=== PATIENT | female | born 1945 | race Caucasian/White ===

== ENCOUNTER 2017-09-09 06:55 | Outpatient (CLI) | payer MEDICARE, BC ==
--- NOTE | 2017-09-09 10:04 | CT ---
CT LUMBAR SPINE: HISTORY: Back pain. History of MRSA. FINDINGS: Noncontrast-enhanced CT images of the lumbar spine obtained. Images demonstrate pedicle hardware with fusion of the L3, L4, L5, and S1 vertebrae using pedicle scr ews. Intervertebral disk hardware is also seen at L4-5 and L5-S1. There are vacuum disk changes see n at the L1-2 intervertebral disk space. End plate sclerotic change is also present. L3, L4, L5, an d S1 pedicle screw hardware is in good position without evidence of loosening. There is marked atrop hy of the right psoas muscle. Laminectomy change is seen at the L4 and L5 posterior elements. No si gnificant degree of central spinal stenosis seen. L2 through S1 fusion with vacuum disk changes seen at the L1-2 intervertebral disk space. Some neural foraminal narrowing is also seen at this level d ue to osteophyte encroachment. POS: [facility]
--- NOTE | 2017-09-09 12:12 | MRI ---
LUMBAR SPINE MRI WITH AND WITHOUT CONTRAST: 09/09/2017 HISTORY: Fall. Low back pain. Right hip, knee, and leg pain. Prior lumbar spine surgery. COMPARISON: None. TECHNIQUE: Multiplanar, multisequence MR imaging of the lumbar spine is provided with and without contrast. FINDINGS: Assuming five lumbar type vertebral bodies, the conus medullaris terminates at the T12-L1 level. There is no significant anterolisthesis or retrolisthesis seen within the lumbar spine. Extensive postoperative hardware is present, incompletely assessed on this examination, including kasey ateral pedicle screws at L3, L4, L5, and S1, with vertically oriented interlocking rods. There is an L4-L5 and L5-S1 disk device present. T11-T12: There is disk space narrowing, disk desiccation, and mild disk bulge. No significant centr al canal or neural foraminal stenosis. T12-L1: Mild bilateral facet hypertrophy. There is disk space narrowing, disk desiccation, and mild disk bulge with no significant central canal or neural foraminal stenosis. L1-L2: There is prominent facet hypertrophy bilaterally with fluid within the bilateral facet joints , which can be seen on the basis of facet joint instability. STIR imaging demonstrates degenerative, edematous endplate change at the L1-L2 level as well. There is disk space narrowing, disk desiccati on, and disk bulge. There is moderate central canal stenosis and moderate/severe bilateral neural fo raminal stenosis. Benign hemangiomata are noted at L1 and L2. L2-L3: There is disk desiccation and mild disk bulge with mild central canal stenosis. There is kasey ateral facet hypertrophy and hypertrophy of the ligamentum flavum. No significant neural foraminal s tenosis on either side. L3-L4: There is disk desiccation. There are annular tears in the bilateral foraminal regions. Ther e is no significant central canal or neural foraminal stenosis. L4-L5: Bilateral laminectomy change noted with no central canal stenosis. No neural foraminal steno sis is noted on either side. L5-S1: No significant central canal or neural foraminal stenosis. The imaged retroperitoneal structures demonstrate numerous T2 hyperintensities within both kidneys, s uggesting numerous small cysts, not optimally, fully characterized on this examination. Post contrast imaging demonstrates no abnormal enhancement involving the nerve roots of the cauda equ theresa. There is no abnormal enhancement involving the imaged osseous structures or the intervertebral disks. IMPRESSION: Multilevel degenerative and postoperative change within the lumbar spine. Findings include L1-L2 josé miguel matous degenerative endplate change with facet hypertrophy and fluid within the bilateral facet joint s. Recommend flexion/extension imaging. There is significant central canal and bilateral neural for aminal stenosis at L1-L2 as well. POS: [facility]
[2017-09-09] MEDS ORDERED: Gadobenate Dimeglumine 529 MG/1 ML (20ML VIAL) ONE (13:59)
== END 2017-09-09 06:56 | disposition home or self-care (01) ==
LOC: MRI 06:55
PROVIDERS: ATTEND Neurological Surgery
DX: M54.5 Low back pain (principal); M47.816 Spondylosis without myelopathy or radiculopathy, lumbar region; M48.061 Spinal stenosis, lumbar region without neurogenic claudication; M99.53 Intervertebral disc stenosis of neural canal of lumbar region; Z98.1 Arthrodesis status
CPT/HCPCS: 72131; 72158; A9579

== ENCOUNTER 2017-10-14 10:31 | Emergency (ER) | payer MEDICARE, BC ==
[2017-10-14 11:50] LABS: #Lymphocytes 0.8 thou/uL (1.20-3.40); #Monocytes 0.5 thou/uL (0.11-0.59); #Neutrophils 4.1 thou/uL (1.40-6.50); %Basophils 0.2 % (0.0-1.0); %Eosinophils 0.6 % (0.0-10.0); %Lymphocytes 14.9 % (21.0-51.0); %Monocytes 9.3 % (0.0-10.0); Hematocrit 45.1 % (36.0-47.0); Mean Platelet Volume 7.4 fL (7.4-10.4); Red Blood Cell (RBC) Count 4.65 mill/uL (4.20-5.40); White Blood Cell (WBC) Count 5.5 thou/uL (4.8-10.8)
[2017-10-14 12:10] LABS: ALT (SGPT) 19 U/L (8-55); AST (SGOT) 47 U/L (5-34); Alkaline Phosphatase 65 U/L (40-150); Anion Gap 14 mmol/L (10-20); BUN (Urea Nitrogen) 21 mg/dL (9.8-20.1); Bilirubin, Total 0.3 mg/dL (0.2-1.2); Calc. Creatinine Clearance 0 mL/min (70-130); Calcium 9.6 mg/dL (7.8-10.44); Carbon Dioxide 27 mmol/L (23-31); Chloride 102 mmol/L (98-107); Estimated GFR-MDRD 52; Globulin 3.4 g/dL (2.4-3.5); Lipase 74 U/L (8-78); Protein, Total 7.8 g/dL (6.0-8.3)
--- NOTE | 2017-10-14 12:55 | RAD ---
PORTABLE CHEST ONE VIEW: Date: 10-14-17 Time: 12:43 p.m. History: Cough. FINDINGS: Comparison is made with exam of 04-11-15. The heart size is normal. The lungs are well expanded without focal areas of consolidation, pneumotho rax, or pleural effusions. IMPRESSION: No radiographic evidence of acute cardiopulmonary process. POS: [facility]
[2017-10-14] MEDS ORDERED: Acetaminophen 500 MG TAB ONE (13:06)
[2017-10-14] MEDS ORDERED: Ibuprofen 200 MG TAB ONE (13:06)
== END 2017-10-14 13:25 | disposition home or self-care (01) ==
LOC: ERS 10:31
DX: J11.1 Influenza due to unidentified influenza virus with other respiratory manifestations (principal); E11.9 Type 2 diabetes mellitus without complications; I25.10 Atherosclerotic heart disease of native coronary artery without angina pectoris; E78.5 Hyperlipidemia, unspecified; I10 Essential (primary) hypertension; Z87.891 Personal history of nicotine dependence
CPT/HCPCS: 36416; 71010; 80053; 83690; 85025; 93005

== ENCOUNTER 2018-03-24 10:00 | Emergency (ER) | payer MEDICARE, BC ==
[2018-03-24] MEDS ORDERED: Ketorolac Tromethamine 30 MG/ML VIAL ONE (10:31)
--- NOTE | 2018-03-24 11:12 | CT ---
CT HEAD WITHOUT CONTRAST: TECHNIQUE: Multiple axial tomograms obtained through the head without IV enhancement. INDICATION: Fall with injury to head. Soft tissue scalp swelling noted of the right frontal bone and orbit. No intracranial hemorrhage. No mass, edema, or infarct identified. No evidence of skull fracture. Sinuses and mastoids are well aerated. IMPRESSION: Soft tissue scalp swelling over the right orbit and frontal bone. No acute intracranial abnormality. POS: [facility]
--- NOTE | 2018-03-24 11:15 | CT ---
CT OF FACIAL BONES PERFORMED WITHOUT CONTRAST ENHANCEMENT: HISTORY: Fall with facial trauma. FINDINGS: A right frontal scalp hematoma is noted. No underlying fracture. No air fluid levels are seen within the sinuses. Some minimal mucosa change is seen in the right max illary sinus. Nasal bone and zygomatic arches are intact. There is no evidence of orbital or maxill natali fracture. The mandible is intact. Condyles are in normal position. Vascular calcifications are seen in the cavernous portions of both internal carotid arteries and oden tid bulb calcifications incidentally noted. IMPRESSION: No CT evidence of facial bone fracture. POS: [facility]
--- NOTE | 2018-03-24 11:18 | CT ---
CT CERVICAL SPINE: TECHNIQUE: Multiple axial tomograms obtained through the cervical spine with multiplanar reconstruction. INDICATION: Fall with injury to head and neck. FINDINGS: Cervical vertebrae maintain normal height and alignment. Prominent degenerative changes are noted in the mid cervical spine with large anterior bridging osteophytes seen at C4-5, C5-6, and C6-7 levels. Prominent posterior bony spondylitic changes encroach into the spinal canal at C5 and C6 levels. T hese changes compress and flatten the cord at these levels. There is foraminal stenosis on the right at C4-5. Bilateral foraminal stenosis at C5-6 and right foraminal stenosis at C6-7. No evidence of acute fracture. IMPRESSION: Prominent degenerative changes of the cervical spine with cord impingement at C5 and C6 levels as crispin cribed above. Foraminal stenosis at multiple levels. No evidence of acute fracture. POS: [facility]
== END 2018-03-24 11:35 | disposition home or self-care (01) ==
LOC: ERS 10:00
DX: S00.11XA Contusion of right eyelid and periocular area, initial encounter (principal); S00.83XA Contusion of other part of head, initial encounter; S00.81XA Abrasion of other part of head, initial encounter; E11.9 Type 2 diabetes mellitus without complications; I25.10 Atherosclerotic heart disease of native coronary artery without angina pectoris; E78.5 Hyperlipidemia, unspecified; I10 Essential (primary) hypertension; Z87.891 Personal history of nicotine dependence; Z79.82 Long term (current) use of aspirin; Z79.899 Other long term (current) drug therapy; W01.0XXA Fall on same level from slipping, tripping and stumbling without subsequent striking against object, initial encounter
CPT/HCPCS: 70450; 70486; 72125; 96372; J1885

== ENCOUNTER 2018-07-07 07:57 | Outpatient (CLI) | payer MEDICARE, BC ==
[2018-07-07] MEDS ORDERED: ISOVUE-370 76%-LOCM 1 ML ONE (09:03)
== END 2018-07-07 07:58 | disposition home or self-care (01) ==
LOC: BICCT 07:57
PROVIDERS: ATTEND Urology
DX: R31.29 Other microscopic hematuria (principal); N20.0 Calculus of kidney; N28.9 Disorder of kidney and ureter, unspecified; N32.89 Other specified disorders of bladder
CPT/HCPCS: 74178

== ENCOUNTER 2018-12-01 12:28 | Outpatient (CLI) | payer MEDICARE, BC ==
--- NOTE | 2018-12-01 13:29 | RAD ---
CHEST TWO VIEWS: History: Cough. Comparison: 2017 FINDINGS: Lungs are clear. No pneumothorax or effusion. Cardiac silhouette and mediastinal contours are similar . Calcified granuloma at the right lung apex. Right upper quadrant surgical clips. IMPRESSION: No acute intrathoracic abnormality. POS: [facility]
== END 2018-12-01 12:29 | disposition home or self-care (01) ==
LOC: BICRAD 12:28
PROVIDERS: ATTEND Family Medicine
DX: E11.9 Type 2 diabetes mellitus without complications (principal)
CPT/HCPCS: 71046

== ENCOUNTER 2019-02-15 08:52 | Outpatient (CLI) | payer MEDICARE, BC ==
--- NOTE | 2019-02-15 12:53 | CT ---
CT ABDOMEN WITH AND WITHOUT CONTRAST: Multiple axial tomograms are obtained through the abdomen pre- and post- IV contrast. Post-contrast images were obtained with portal venous phase and delayed venous phase imaging. INDICATIONS: Followup complex renal cystic lesions. COMPARISON: Comparison is made to prior CT of 07/07/2018. FINDINGS: Lung bases clear. A small sliding diaphragmatic hernia is stable in appearance. The liver, spleen, and pancreas are unremarkable. Post cholecystectomy changes. Adrenal glands appe ar stable. A tiny nodular density involving the medial limb of the left adrenal gland measuring in 1 cm range is stable. This lesion has a low-density center suggesting a tiny benign adenoma. Kidneys are again evaluated. There are bilateral cystic lesions, all of which appear stable. The co mplex septated lesion involving the lateral left kidney is again noted. This lesion has internal irineo ear calcifications which appear stable. The overall size and appearance of this lesion is unchanged from the prior study. Aorta shows atherosclerotic calcifications without aneurysmal dilatation. No adenopathy apparent. IMPRESSION: 1. Multiple bilateral renal cystic lesions all appear stable from prior exam. The complex partially septated and calcified lesion lateral left kidney is unchanged. 2. Evidence of a tiny left adrenal nodule is also stable. 3. There is a small sliding diaphragmatic hernia which is unchanged. POS: [facility]
[2019-02-15] MEDS ORDERED: ISOVUE-370 76%-LOCM 1 ML ONE (13:38)
== END 2019-02-15 08:53 | disposition home or self-care (01) ==
LOC: BICCT 08:52
PROVIDERS: ATTEND Urology
DX: N28.1 Cyst of kidney, acquired (principal); N28.9 Disorder of kidney and ureter, unspecified; K44.9 Diaphragmatic hernia without obstruction or gangrene; E27.9 Disorder of adrenal gland, unspecified
CPT/HCPCS: 74170; 82565; Q9966

== ENCOUNTER 2019-12-22 10:33 | Emergency (ER) | payer MEDICARE, BC ==
[2019-12-22 12:34] LABS: #Basophils 0.1 thou/uL (0.0-0.2); #Eosinphils 0.1 thou/uL (0.0-0.7); #Lymphocytes 2.5 thou/uL (1.20-3.40); #Monocytes 0.7 thou/uL (0.11-0.59); #Neutrophils 7.5 thou/uL (1.40-6.50); %Basophils 0.6 % (0.0-1.0); %Eosinophils 0.7 % (0.0-10.0); %Lymphocytes 23.2 % (21.0-51.0); %Monocytes 6.8 % (0.0-10.0); %Neutrophils 68.7 % (42.0-75.0); Hemoglobin 14.9 g/dL (12.0-16.0); Mean Corpuscular HGB CONC 32.6 g/dL (32.0-36.0); Mean Corpuscular Hemoglobin 31.6 pg (27.0-31.0); Mean Platelet Volume 7.6 fL (7.4-10.4); Platelet Count 240 thou/uL (130-400); RBC Distribution Width 13.1 % (11.5-14.5); Red Blood Cell (RBC) Count 4.73 mill/uL (4.20-5.40); White Blood Cell (WBC) Count 10.9 thou/uL (4.8-10.8)
[2019-12-22 12:44] LABS: Bilirubin Negative (Negative); Blood, Urine 2+ (Negative); Clarity Clear (Clear); Glucose, Urine (Dipstick) Normal (Negative); Leukocyte 75 Leu/uL (Negative); Nitrite Negative (Negative); Protein, Urine (Dipstick) 100 mg/dL (Neg-Trace)
[2019-12-22 12:45] LABS: ALT (SGPT) 11 U/L (8-55); AST (SGOT) 16 U/L (5-34); Albumin 4.2 g/dL (3.4-4.8); Alkaline Phosphatase 61 U/L (40-110); Anion Gap 15 mmol/L (10-20); BUN (Urea Nitrogen) 21 mg/dL (9.8-20.1); Calc. Creatinine Clearance 0 mL/min (70-130); Carbon Dioxide 29 mmol/L (23-31); Chloride 100 mmol/L (98-107); Estimated GFR-MDRD 52; Globulin 3.7 g/dL (2.4-3.5); Glucose 107 mg/dL (83-110); Lipase 37 U/L (8-78); Potassium 4.1 mmol/L (3.5-5.1); Protein, Total 7.9 g/dL (6.0-8.3); Sodium 140 mmol/L (136-145)
[2019-12-22 12:49] LABS: Bacteria/HPF 1+ HPF (None Seen)
[2019-12-22] MEDS ORDERED: Iopamidol-370 76% 500 ML 1 ML ONE (13:30)
[2019-12-22] MEDS ORDERED: Morphine 4 MG/ML VIAL ONE (13:34)
[2019-12-22] MEDS ORDERED: Ondansetron PF 4 MG/2 ML Vial ONE (13:35)
--- NOTE | 2019-12-22 13:52 | CT ---
CT OF THE ABDOMEN AND PELVIS WITH CONTRAST: Date: 12/22/2019 COMPARISON: 07/07/2018. HISTORY: Severe abdominal pain with nausea since last night. TECHNIQUE: Multiple contiguous axial images were obtained in a CT of the abdomen and pelvis with contrast. Sagit mauro and coronal reformats were performed. FINDINGS: The patient is status post cholecystectomy. There are stable hypodensities in both kidneys which like ly represent cysts. There is a complex stable 3.0 cm lesion emanating from the mid portion of the lef t kidney with septations. There are thin calcifications along one of the septa. No focal liver lesions are seen. The adrenal glands, spleen, and pancreas are unremarkable. The patient has bilateral hip prostheses which produce streak artifact limiting evaluation of the pel vis. No free air, free fluid, or stranding changes are seen in the abdomen or pelvis. The patient is status post hysterectomy. The large and small bowel are unremarkable. The appendix is not definitely seen. Atherosclerotic calcifications are seen in the aorta. No abdominal or pelvic lymphadenopathy are appr eciated. Postsurgical changes are seen in the spine. Degenerative changes are seen in the spine. The visualize d inferior thorax and abdominal wall soft tissues are unremarkable. IMPRESSION: 1. No evidence of acute intra-abdominal/pelvic abnormality. 2. Stable hypodense lesions in both kidneys likely represent cysts. The complex cyst in the mid port ion of the left kidney remains stable. POS: [facility]
[2019-12-22] MEDS ORDERED: Ketorolac Tromethamine 30 MG/ML VIAL ONE (14:37)
--- NOTE | 2019-12-25 11:30 | EKG ---
Test Reason : Blood Pressure : / mmHG Vent. Rate : 079 BPM Atrial Rate : 079 BPM P-R Int : 146 ms QRS Dur : 076 ms QT Int : 370 ms P-R-T Axes : 056 -15 034 degrees QTc Int : 424 ms Normal sinus rhythm Possible Left atrial enlargement Left ventricular hypertrophy Abnormal ECG Confirmed by QUIRINO PAZ DO ([id number]), book editor MONY BISWAS ([id number]) on 12/25/2019 11:29:42 AM Referred By: Confirmed By:QUIRINO PAZ DO
== END 2019-12-22 15:53 | disposition home or self-care (01) ==
LOC: ERS 10:33
DX: N39.0 Urinary tract infection, site not specified (principal); E11.9 Type 2 diabetes mellitus without complications; I25.10 Atherosclerotic heart disease of native coronary artery without angina pectoris; I10 Essential (primary) hypertension; E78.5 Hyperlipidemia, unspecified; Z87.891 Personal history of nicotine dependence; Z79.82 Long term (current) use of aspirin; Z79.899 Other long term (current) drug therapy
CPT/HCPCS: 74177; 80053; 81003; 81015; 83690; 85025; 87086; 93005; 96372; 96374; 96375; J0500; J1885; J2270; J2405; Q9967

== ENCOUNTER 2021-01-11 09:02 | Inpatient (IN) | payer MEDICARE, BC ==
[2021-01-11] MEDS ORDERED: Ondansetron ODT 4 MG TAB ONE (09:40)
[2021-01-11] MEDS ORDERED: Ondansetron PF 4 MG/2 ML Vial ONE (11:28)
[2021-01-11] MEDS ORDERED: Cefepime 2 GM VIAL ONE (11:28)
[2021-01-11] MEDS ORDERED: Vancomycin 1 GM/200 ML BAG ONE (11:28)
[2021-01-11] MEDS ORDERED: Morphine 4 MG/ML VIAL ONE (11:28)
[2021-01-11 12:27] LABS: #Eosinphils 0.2 thou/uL (0.0-0.7); #Lymphocytes 3.2 thou/uL (1.20-3.40); #Monocytes 0.6 thou/uL (0.11-0.59); #Neutrophils 6.1 thou/uL (1.40-6.50); %Basophils 0.3 % (0.0-1.0); %Eosinophils 2.3 % (0.0-10.0); %Lymphocytes 31.4 % (21.0-51.0); Hemoglobin 14.3 g/dL (12.0-16.0); Mean Corpuscular HGB CONC 33.3 g/dL (32.0-36.0); Mean Corpuscular Hemoglobin 31.9 pg (27.0-31.0); Mean Corpuscular Volume 95.8 fL (78.0-98.0); Mean Platelet Volume 7.7 fL (7.4-10.4); Platelet Count 250 thou/uL (130-400); RBC Distribution Width 12.7 % (11.5-14.5); Red Blood Cell (RBC) Count 4.47 mill/uL (4.20-5.40); White Blood Cell (WBC) Count 10.2 thou/uL (4.8-10.8)
[2021-01-11 12:41] LABS: ALT (SGPT) 13 U/L (8-55); AST (SGOT) 24 U/L (5-34); Albumin 4.3 g/dL (3.4-4.8); Alkaline Phosphatase 62 U/L (40-110); Anion Gap 15 mmol/L (10-20); BUN (Urea Nitrogen) 28 mg/dL (9.8-20.1); Bilirubin, Total 0.4 mg/dL (0.2-1.2); Calc. Creatinine Clearance 0 mL/min (70-130); Calcium 9.6 mg/dL (7.8-10.44); Carbon Dioxide 27 mmol/L (23-31); Chloride 104 mmol/L (98-107); Globulin 3.4 g/dL (2.4-3.5); Glucose 126 mg/dL (83-110); Potassium 4.5 mmol/L (3.5-5.1); Protein, Total 7.7 g/dL (5.8-8.1); Sodium 141 mmol/L (136-145)
[2021-01-11] MEDS ORDERED: Ondansetron PF 4 MG/2 ML Vial IVP PRN (14:40)
[2021-01-11] MEDS ORDERED: Acetaminophen 325 MG TAB PO PRN (14:40)
[2021-01-11] MEDS ORDERED: Acetaminophen 650 MG Suppository PR PRN ×2 (14:40→16:29)
[2021-01-11] MEDS ORDERED: Ondansetron ODT 4 MG TAB PO PRN (14:40)
[2021-01-11] MEDS ORDERED: Enoxaparin Sodium 40 MG/0.4 ML SYRINGE SC SCH (14:45)
[2021-01-11] MEDS ORDERED: traMADol HCl 50 MG TAB ONE (16:40)
[2021-01-11] MEDS: Sodium Chloride 0.9% 1,000 ML IV SCH (16:45)
[2021-01-11] MEDS: traMADol HCl 50 MG TAB PO PRN ×2 (16:45→22:35)
[2021-01-11] MEDS: Acetaminophen 325 MG TAB PO SCH ×2 (17:40→20:48)
[2021-01-11 17:43] VITALS: BMI 37.1
[2021-01-11] MEDS ORDERED: Dextrose 5% in Water 1,000 ML IV PRN (19:07)
[2021-01-11] MEDS ORDERED: Dextrose 50% Abboject 50 ML SYRINGE SLOW IVP PRN (19:07)
[2021-01-11] MEDS: Heparin 5,000 UNITS/ML VIAL SC SCH (20:49)
[2021-01-12] MEDS: Acetaminophen 325 MG TAB PO SCH ×6 (00:08→20:53)
[2021-01-12] MEDS: Piperacillin/Tazobactam 3.375 GM in Sodium Chloride 0.9% 100 ML IVPB SCH ×5 (00:10→23:44)
[2021-01-12 04:31] LABS: SARS-CoV-2 PCR by NAA Not Detected (NotDetected)
[2021-01-12] MEDS: Sodium Chloride 0.9% 1,000 ML IV SCH ×2 (05:28→18:08)
[2021-01-12 06:57] LABS: #Basophils 0.1 thou/uL (0.0-0.2); #Eosinphils 0.2 thou/uL (0.0-0.7); #Monocytes 0.5 thou/uL (0.11-0.59); #Neutrophils 3.5 thou/uL (1.40-6.50); %Eosinophils 3.4 % (0.0-10.0); %Lymphocytes 31.9 % (21.0-51.0); %Monocytes 8.1 % (0.0-10.0); %Neutrophils 55.5 % (42.0-75.0); Hemoglobin 12.4 g/dL (12.0-16.0); Mean Corpuscular HGB CONC 33.3 g/dL (32.0-36.0); Mean Corpuscular Hemoglobin 31.9 pg (27.0-31.0); Mean Corpuscular Volume 95.7 fL (78.0-98.0); Mean Platelet Volume 7.6 fL (7.4-10.4); Platelet Count 209 thou/uL (130-400); RBC Distribution Width 12.6 % (11.5-14.5); White Blood Cell (WBC) Count 6.2 thou/uL (4.8-10.8)
[2021-01-12 07:15] LABS: Lactic Acid 1.2 mmol/L (0.5-2.2)
[2021-01-12 07:16] LABS: Anion Gap 14 mmol/L (10-20); BUN (Urea Nitrogen) 23 mg/dL (9.8-20.1); Calc. Creatinine Clearance 68 mL/min (70-130); Calcium 8.2 mg/dL (7.8-10.44); Carbon Dioxide 23 mmol/L (23-31); Chloride 107 mmol/L (98-107); Glucose 121 mg/dL (83-110); Potassium 4.1 mmol/L (3.5-5.1); Sodium 140 mmol/L (136-145)
[2021-01-12] MEDS: Heparin 5,000 UNITS/ML VIAL SC SCH ×2 (08:28→20:54)
[2021-01-12] MEDS ORDERED: Enoxaparin Sodium 40 MG/0.4 ML SYRINGE SC SCH (09:00)
[2021-01-12] MEDS ORDERED: Lidocaine 1% (PF) 30 ML VIAL ONE (09:47)
[2021-01-12 11:09] LABS: ANA Symphony (Qualitative) Negative (Negative); ANA Symphony (Quantitative) 0.1 Ratio (< 0.7 Negative); dsDNA IgG Antibody Less than 0.5 IU/mL (<10 Negative)
[2021-01-12] MEDS: traMADol HCl 50 MG TAB PO PRN (14:33)
[2021-01-12] MEDS: Vancomycin 1.5 GRAM/300 ML BAG 1.5 GM in Premix Bag 1 BAG IVPB SCH (14:34)
[2021-01-12] MEDS: Diphenoxylate HCl/Atropine Tablet PO PRN (23:44)
[2021-01-13] MEDS: Acetaminophen 325 MG TAB PO SCH ×2 (01:34→05:33)
[2021-01-13] MEDS: Piperacillin/Tazobactam 3.375 GM in Sodium Chloride 0.9% 100 ML IVPB SCH ×2 (05:33→10:23)
[2021-01-13] MEDS: Sodium Chloride 0.9% 1,000 ML IV SCH (05:57)
[2021-01-13 06:45] LABS: #Basophils 0.1 thou/uL (0.0-0.2); #Eosinphils 0.3 thou/uL (0.0-0.7); #Lymphocytes 2.3 thou/uL (1.20-3.40); #Monocytes 0.6 thou/uL (0.11-0.59); #Neutrophils 2.9 thou/uL (1.40-6.50); %Basophils 0.9 % (0.0-1.0); %Eosinophils 4.4 % (0.0-10.0); %Lymphocytes 37.5 % (21.0-51.0); %Monocytes 9.2 % (0.0-10.0); %Neutrophils 47.9 % (42.0-75.0); Hemoglobin 11.9 g/dL (12.0-16.0); Mean Corpuscular Volume 96.9 fL (78.0-98.0); Mean Platelet Volume 7.9 fL (7.4-10.4); Platelet Count 201 thou/uL (130-400); RBC Distribution Width 12.5 % (11.5-14.5); White Blood Cell (WBC) Count 6.1 thou/uL (4.8-10.8)
[2021-01-13 07:04] LABS: Anion Gap 13 mmol/L (10-20); BUN (Urea Nitrogen) 17 mg/dL (9.8-20.1); Calc. Creatinine Clearance 82 mL/min (70-130); Calcium 8.1 mg/dL (7.8-10.44); Carbon Dioxide 21 mmol/L (23-31); Chloride 109 mmol/L (98-107); Glucose 100 mg/dL (83-110); Sodium 139 mmol/L (136-145)
[2021-01-13] MEDS ORDERED: Zolpidem Tartrate 5 MG TAB PO PRN (07:38)
[2021-01-13] MEDS ORDERED: Senokot S 8.6-50 MG TAB PO PRN (07:38)
[2021-01-13] MEDS ORDERED: hydrALAZINE 20 MG/ML VIAL SLOW IVP PRN (07:38)
[2021-01-13] MEDS ORDERED: Bisacodyl 5 MG TAB PO PRN (07:38)
[2021-01-13] MEDS ORDERED: GUAIFENESIN SF SOLN 200 MG/10 ML UDCUP PO PRN (07:38)
[2021-01-13] MEDS ORDERED: Calcium Carbonate 500 MG ChewTAB PO PRN (07:38)
[2021-01-13] MEDS ORDERED: Cepastat Lozenges 1 LOZ PO PRN (07:38)
[2021-01-13] MEDS ORDERED: Sodium Chloride 0.65% Nasal 44 ML BOT EA NARE PRN (07:38)
[2021-01-13] MEDS ORDERED: Loratadine 10 MG TAB PO PRN (07:38)
[2021-01-13] MEDS: Aspirin Chewable 81 MG TAB PO SCH (08:50)
[2021-01-13] MEDS: Losartan 25 MG TAB PO SCH (08:50)
[2021-01-13] MEDS: Saccharomyces boulardii 250 MG CAP PO SCH (08:50)
[2021-01-13] MEDS: Glimepiride 2 MG TAB PO SCH (08:50)
[2021-01-13] MEDS: Heparin 5,000 UNITS/ML VIAL SC SCH ×2 (08:51→20:41)
[2021-01-13] MEDS: Diphenoxylate HCl/Atropine Tablet PO PRN (08:55)
[2021-01-13] MEDS ORDERED: predniSONE 20 MG TAB PO SCH (09:30)
[2021-01-13] MEDS ORDERED: Indomethacin 25 mg Capsule PO SCH (10:00)
[2021-01-13] MEDS: Loperamide HCl 2 MG CAP PO PRN (10:27)
[2021-01-13] MEDS: Vancomycin 1.5 GRAM/300 ML BAG 1.5 GM in Premix Bag 1 BAG IVPB SCH (12:27)
[2021-01-13] MEDS: Atorvastatin Calcium 20 MG TAB PO SCH (20:37)
[2021-01-13] MEDS: Indomethacin 25 mg Capsule PO SCH (20:37)
[2021-01-13] MEDS: Doxycycline 100 MG CAP PO SCH (20:43)
[2021-01-13] MEDS: Acetaminophen 325 MG TAB PO PRN (20:43)
[2021-01-13] MEDS: HumaLOG 300 UNITS/3 ML VIAL SC PRN (20:45)
[2021-01-14] MEDS: Loperamide HCl 2 MG CAP PO PRN (01:58)
[2021-01-14] MEDS: Acetaminophen 325 MG TAB PO PRN ×2 (02:03→21:34)
[2021-01-14 07:08] LABS: #Lymphocytes 2.2 thou/uL (1.20-3.40); #Monocytes 0.8 thou/uL (0.11-0.59); #Neutrophils 7.7 thou/uL (1.40-6.50); %Basophils 0.1 % (0.0-1.0); %Eosinophils 0.4 % (0.0-10.0); %Lymphocytes 20.4 % (21.0-51.0); %Monocytes 7.7 % (0.0-10.0); %Neutrophils 71.4 % (42.0-75.0); Hemoglobin 12.3 g/dL (12.0-16.0); Mean Corpuscular HGB CONC 33.1 g/dL (32.0-36.0); Mean Corpuscular Hemoglobin 31.8 pg (27.0-31.0); Mean Corpuscular Volume 96.1 fL (78.0-98.0); Platelet Count 200 thou/uL (130-400); RBC Distribution Width 12.4 % (11.5-14.5); Red Blood Cell (RBC) Count 3.87 mill/uL (4.20-5.40); White Blood Cell (WBC) Count 10.8 thou/uL (4.8-10.8)
[2021-01-14 07:22] LABS: Anion Gap 16 mmol/L (10-20); BUN (Urea Nitrogen) 19 mg/dL (9.8-20.1); Calc. Creatinine Clearance 88 mL/min (70-130); Calcium 8.6 mg/dL (7.8-10.44); Carbon Dioxide 18 mmol/L (23-31); Chloride 111 mmol/L (98-107); Glucose 116 mg/dL (83-110); Potassium 4.4 mmol/L (3.5-5.1); Sodium 141 mmol/L (136-145)
[2021-01-14] MEDS: Doxycycline 100 MG CAP PO SCH ×3 (07:53→21:19)
[2021-01-14] MEDS: Losartan 25 MG TAB PO SCH (07:53)
[2021-01-14] MEDS: Diphenoxylate HCl/Atropine Tablet PO PRN ×2 (07:53→21:34)
[2021-01-14] MEDS: Saccharomyces boulardii 250 MG CAP PO SCH (07:54)
[2021-01-14] MEDS: Aspirin Chewable 81 MG TAB PO SCH (07:54)
[2021-01-14] MEDS: Glimepiride 2 MG TAB PO SCH (07:54)
[2021-01-14] MEDS: Indomethacin 25 mg Capsule PO SCH ×2 (07:54→21:19)
[2021-01-14] MEDS: predniSONE 20 MG TAB PO SCH (07:55)
[2021-01-14] MEDS: Heparin 5,000 UNITS/ML VIAL SC SCH ×2 (07:55→21:20)
[2021-01-14] MEDS: Vancomycin 1.5 GRAM/300 ML BAG 1.5 GM in Premix Bag 1 BAG IVPB SCH (08:04)
[2021-01-14] MEDS: HumaLOG 300 UNITS/3 ML VIAL SC PRN ×3 (12:59→21:21)
[2021-01-14] MEDS ORDERED: Indomethacin 25 mg Capsule PO SCH (17:00)
[2021-01-14] MEDS: Atorvastatin Calcium 20 MG TAB PO SCH (21:19)
[2021-01-15 05:45] LABS: #Monocytes 0.5 thou/uL (0.11-0.59); #Neutrophils 5.8 thou/uL (1.40-6.50); %Eosinophils 0.5 % (0.0-10.0); %Lymphocytes 24.2 % (21.0-51.0); %Monocytes 6.4 % (0.0-10.0); %Neutrophils 68.9 % (42.0-75.0); Hemoglobin 12.2 g/dL (12.0-16.0); Mean Corpuscular HGB CONC 32.9 g/dL (32.0-36.0); Mean Corpuscular Hemoglobin 31.6 pg (27.0-31.0); Mean Corpuscular Volume 95.9 fL (78.0-98.0); Mean Platelet Volume 7.7 fL (7.4-10.4); Platelet Count 222 thou/uL (130-400); RBC Distribution Width 12.7 % (11.5-14.5); Red Blood Cell (RBC) Count 3.85 mill/uL (4.20-5.40); White Blood Cell (WBC) Count 8.4 thou/uL (4.8-10.8)
[2021-01-15 06:15] LABS: Anion Gap 10 mmol/L (10-20); BUN (Urea Nitrogen) 25 mg/dL (9.8-20.1); Calc. Creatinine Clearance 72 mL/min (70-130); Calcium 8.4 mg/dL (7.8-10.44); Carbon Dioxide 25 mmol/L (23-31); Chloride 109 mmol/L (98-107); Glucose 112 mg/dL (83-110); Potassium 3.9 mmol/L (3.5-5.1); Sodium 140 mmol/L (136-145)
[2021-01-15] MEDS: predniSONE 20 MG TAB PO SCH (08:25)
[2021-01-15] MEDS: Saccharomyces boulardii 250 MG CAP PO SCH (08:25)
[2021-01-15] MEDS: Losartan 25 MG TAB PO SCH (08:25)
[2021-01-15] MEDS: Aspirin Chewable 81 MG TAB PO SCH (08:25)
[2021-01-15] MEDS: Heparin 5,000 UNITS/ML VIAL SC SCH (08:26)
[2021-01-15 09:17] VITALS: BP 145/77; TEMP 98.2
[2021-01-15] MEDS: Doxycycline 100 MG CAP PO SCH (09:31)
[2021-01-15] MEDS: Indomethacin 25 mg Capsule PO SCH (09:32)
[2021-01-15] MEDS: Glimepiride 2 MG TAB PO SCH (09:32)
== END 2021-01-15 11:08 | disposition home or self-care (01) | DRG 504 ==
LOC: ERS 09:02 → ERHOLD 14:21 → T4-A 17:20 → OBSVTOIN 01-12 11:16
PROVIDERS: ADMIT Internal Medicine; ATTEND Internal Medicine
PROC: 0S9Q0ZZ Drainage of Left Toe Phalangeal Joint, Open Approach (ICD-10-PCS; principal; 2021-01-12)
DX: M10.072 Idiopathic gout, left ankle and foot (principal); N17.9 Acute kidney failure, unspecified; L02.619 Cutaneous abscess of unspecified foot; I12.9 Hypertensive chronic kidney disease with stage 1 through stage 4 chronic kidney disease, or unspecified chronic kidney disease; E11.22 Type 2 diabetes mellitus with diabetic chronic kidney disease; E78.5 Hyperlipidemia, unspecified; I25.10 Atherosclerotic heart disease of native coronary artery without angina pectoris; Z96.641 Presence of right artificial hip joint; N18.9 Chronic kidney disease, unspecified; L03.032 Cellulitis of left toe; E66.9 Obesity, unspecified; E11.51 Type 2 diabetes mellitus with diabetic peripheral angiopathy without gangrene; K52.9 Noninfective gastroenteritis and colitis, unspecified; Z68.37 Body mass index [BMI] 37.0-37.9, adult; Z87.891 Personal history of nicotine dependence; Z95.5 Presence of coronary angioplasty implant and graft; Z88.1 Allergy status to other antibiotic agents; Z88.5 Allergy status to narcotic agent; Z88.8 Allergy status to other drugs, medicaments and biological substances; Z79.82 Long term (current) use of aspirin; Z79.84 Long term (current) use of oral hypoglycemic drugs; Z79.52 Long term (current) use of systemic steroids; Z90.49 Acquired absence of other specified parts of digestive tract
CPT/HCPCS: 36415; 36416; 80048; 80053; 83605; 83630; 84550; 85025; 85652; 86038; 86140; 86225; 87040; 87045; 87046; 87070; 87081; 87205; 87324; 87427; 87449; 87635; 89060; 93923; 96365; 96366; 96367; 96372; 96375; G0378; J0692; J1644; J1815; J2270; J2405; J2543; J3370; J3490; J7512; Q0162; U0003; U0005

== ENCOUNTER 2021-01-23 09:03 | Outpatient (CLI) | payer MEDICARE, BC | END 2021-01-23 09:04 | disposition home or self-care (01) | LOC: BICULT 09:03 | PROVIDERS: ATTEND Urology | DX: N28.1 Cyst of kidney, acquired (principal); N28.89 Other specified disorders of kidney and ureter | CPT/HCPCS: 76770 ==

== ENCOUNTER 2021-01-30 00:47 | Emergency (ER) | payer MEDICARE, BC ==
[2021-01-30] MEDS ORDERED: Ondansetron PF 4 MG/2 ML Vial ONE (02:31)
[2021-01-30] MEDS ORDERED: Morphine 4 MG/ML VIAL ONE (02:31)
[2021-01-30 02:34] LABS: #Eosinphils 0.1 thou/uL (0.0-0.7); #Lymphocytes 1.8 thou/uL (1.20-3.40); #Monocytes 0.8 thou/uL (0.11-0.59); #Neutrophils 9.4 thou/uL (1.40-6.50); %Basophils 0.1 % (0.0-1.0); %Lymphocytes 14.6 % (21.0-51.0); %Monocytes 6.6 % (0.0-10.0); %Neutrophils 77.6 % (42.0-75.0); Hemoglobin 14.2 g/dL (12.0-16.0); Mean Corpuscular Hemoglobin 31.6 pg (27.0-31.0); Mean Corpuscular Volume 95.7 fL (78.0-98.0); Mean Platelet Volume 7.9 fL (7.4-10.4); Platelet Count 220 thou/uL (130-400); RBC Distribution Width 12.5 % (11.5-14.5); Red Blood Cell (RBC) Count 4.49 mill/uL (4.20-5.40)
[2021-01-30] MEDS ORDERED: Fentanyl 100 MCG/2 ML VIAL ONE (02:39)
[2021-01-30 02:57] LABS: ALT (SGPT) 22 U/L (8-55); AST (SGOT) 31 U/L (5-34); Albumin 4.1 g/dL (3.4-4.8); Alkaline Phosphatase 66 U/L (40-110); Anion Gap 18 mmol/L (10-20); BUN (Urea Nitrogen) 20 mg/dL (9.8-20.1); Bilirubin, Total 0.6 mg/dL (0.2-1.2); Calc. Creatinine Clearance 0 mL/min (70-130); Calcium 10.2 mg/dL (7.8-10.44); Carbon Dioxide 25 mmol/L (23-31); Chloride 101 mmol/L (98-107); Globulin 3.3 g/dL (2.4-3.5); Glucose 180 mg/dL (83-110); Lipase 57 U/L (8-78); Potassium 4.3 mmol/L (3.5-5.1); Protein, Total 7.4 g/dL (5.8-8.1); Sodium 140 mmol/L (136-145)
[2021-01-30] MEDS ORDERED: HYDROcodone/Acetaminophen 10/325 mg Tablet ONE (03:51)
[2021-01-30 04:00] LABS: Bacteria/HPF None Seen HPF (None Seen); Bilirubin Negative (Negative); Blood, Urine 2+ (Negative); Clarity Clear (Clear); Glucose, Urine (Dipstick) Normal (Negative); Ketone, Urine Negative (Negative); Leukocyte 75 Leu/uL (Negative); Nitrite Negative (Negative); Protein, Urine (Dipstick) 50 mg/dL (Neg-Trace); Specific Gravity, Urine 1.021 (1.002-1.036); Urobilinogen Normal mg/dL (Less than 2)
[2021-01-30] MEDS ORDERED: Iopamidol-370 76% 500 ML 1 ML ONE (08:46)
== END 2021-01-30 03:59 | disposition home or self-care (01) ==
LOC: ERS 00:47
DX: R10.30 Lower abdominal pain, unspecified (principal); R11.0 Nausea; I25.10 Atherosclerotic heart disease of native coronary artery without angina pectoris; E11.9 Type 2 diabetes mellitus without complications; E78.5 Hyperlipidemia, unspecified; I10 Essential (primary) hypertension; Z87.891 Personal history of nicotine dependence
CPT/HCPCS: 74177; 80053; 81003; 81015; 83690; 85025; 96374; 96375; J2270; J2405; J3010; Q9967

== ENCOUNTER 2023-02-03 15:29 | Outpatient (CLI) | payer MEDICARE, BC | END 2023-02-03 15:30 | disposition home or self-care (01) | LOC: BICULT 15:29 | PROVIDERS: ATTEND Urology | DX: N28.1 Cyst of kidney, acquired (principal); N20.0 Calculus of kidney | CPT/HCPCS: 76770 ==

== ENCOUNTER 2023-05-11 19:45 | Inpatient (IN) | payer MEDICARE, BC ==
[2023-05-11 20:57] VITALS: BMI 32.6
[2023-05-11] MEDS ORDERED: hydrALAZINE 20 MG/ML VIAL SLOW IVP PRN (21:08)
[2023-05-11] MEDS ORDERED: Labetalol HCl 100 MG/20 ML VIAL SLOW IVP PRN (21:08)
[2023-05-11] MEDS ORDERED: Ondansetron PF 4 MG/2 ML Vial IVP PRN (21:08)
[2023-05-11] MEDS ORDERED: Aspirin 81 mg Enteric Coated Tablet PO SCH (21:30)
[2023-05-11] MEDS: Acetaminophen 325 MG TAB PO PRN (21:57)
[2023-05-11] MEDS ORDERED: Glucagon 1 MG/ML KIT IM PRN (22:13)
[2023-05-11] MEDS ORDERED: Dextrose 5% in Water 1,000 ML IV PRN (22:13)
[2023-05-11] MEDS ORDERED: Dextrose 50% Abboject 50 ML SYRINGE SLOW IVP PRN (22:13)
[2023-05-11] MEDS ORDERED: HumaLOG 300 UNITS/3 ML VIAL SC PRN ×2 (22:13)
[2023-05-11] MEDS ORDERED: Polyethylene Glycol 3350 17 GM Packet PO PRN (22:32)
[2023-05-12 05:31] LABS: #Eosinphils 0.2 thou/uL (0.0-0.7); #Monocytes 0.5 thou/uL (0.11-0.59); #Neutrophils 2.8 thou/uL (1.40-6.50); %Basophils 0.5 % (0.0-1.0); %Eosinophils 4.1 % (0.0-10.0); %Lymphocytes 39.5 % (21.0-51.0); %Neutrophils 46.7 % (42.0-75.0); Hemoglobin 12.6 g/dL (12.0-16.0); Mean Corpuscular HGB CONC 32.6 g/dL (32.0-36.0); Mean Corpuscular Volume 95.1 fl (78.0-98.0); Platelet Count 193 10x3/uL (130-400); RBC Distribution Width 13.2 % (11.5-14.5); Red Blood Cell (RBC) Count 4.06 mill/uL (4.20-5.40); White Blood Cell (WBC) Count 5.9 10x3/uL (4.8-10.8)
[2023-05-12 05:50] LABS: Hemoglobin A1c 6.1 % (4.0-6.0)
[2023-05-12 05:53] LABS: Anion Gap 10 mmol/L (10-20); BUN (Urea Nitrogen) 15 mg/dL (9.8-20.1); Calc. Creatinine Clearance 70 mL/min (70-130); Calcium 9.2 mg/dL (7.8-10.44); Carbon Dioxide 29 mmol/L (23-31); Cardiac Risk 3.7 (Less than 4.5); Chloride 107 mmol/L (98-107); Cholesterol 140 mg/dl (< 200 Desired); Estimated GFR 58; Glucose 108 mg/dL (83-110); HDL Cholesterol 38 mg/dL (>60 Neg Risk); LDL Cholesterol, Calculated 51 mg/dL; Sodium 142 mmol/L (136-145); Triglycerides 255 mg/dL (Less than 150)
[2023-05-12] MEDS ORDERED: MECLIZINE HCL 50 MG PO PRN (07:30)
[2023-05-12] MEDS ORDERED: Meclizine HCl 25 MG TAB PO PRN (07:38)
[2023-05-12] MEDS ORDERED: Iopamidol 370 76% 100 ML VIAL ONE (09:02)
[2023-05-12] MEDS: Gabapentin 300 MG CAP PO SCH (10:08)
[2023-05-12] MEDS: Aspirin 81 mg Enteric Coated Tablet PO SCH (10:08)
[2023-05-12] MEDS ORDERED: Promethazine 25 MG TAB PO PRN (10:47)
[2023-05-12] MEDS ORDERED: Scopolamine 1.5 mg/72 hour Patch TD SCH (11:00)
[2023-05-12] MEDS: Acetaminophen 325 MG TAB PO PRN ×2 (14:58→20:08)
[2023-05-12] MEDS ORDERED: Atorvastatin Calcium 20 MG TAB PO SCH (21:00)
[2023-05-12] MEDS ORDERED: Simvastatin 40 MG TAB PO SCH (21:00)
[2023-05-13 05:50] LABS: #Eosinphils 0.2 thou/uL (0.0-0.7); #Monocytes 0.4 thou/uL (0.11-0.59); #Neutrophils 2.5 thou/uL (1.40-6.50); %Basophils 0.6 % (0.0-1.0); %Eosinophils 3.3 % (0.0-10.0); %Monocytes 8.6 % (0.0-10.0); %Neutrophils 49.3 % (42.0-75.0); Hemoglobin 12.5 g/dL (12.0-16.0); Mean Corpuscular HGB CONC 32.6 g/dL (32.0-36.0); Mean Corpuscular Hemoglobin 31.3 pg (27.0-31.0); Mean Corpuscular Volume 95.8 fl (78.0-98.0); Mean Platelet Volume 9.9 fL (7.4-10.4); Platelet Count 195 10x3/uL (130-400); RBC Distribution Width 13.2 % (11.5-14.5); White Blood Cell (WBC) Count 5.1 10x3/uL (4.8-10.8)
[2023-05-13 06:18] LABS: Anion Gap 16 mmol/L (10-20); BUN (Urea Nitrogen) 12 mg/dL (9.8-20.1); Calc. Creatinine Clearance 67 mL/min (70-130); Calcium 9.2 mg/dL (7.8-10.44); Carbon Dioxide 24 mmol/L (23-31); Chloride 107 mmol/L (98-107); Estimated GFR 55; Glucose 125 mg/dL (83-110); Potassium 3.9 mmol/L (3.5-5.1); Sodium 143 mmol/L (136-145)
[2023-05-13] MEDS ORDERED: Metoprolol Tartrate 25 MG TAB PO SCH (09:00)
[2023-05-13] MEDS: Aspirin 81 mg Enteric Coated Tablet PO SCH (09:08)
[2023-05-13] MEDS: Gabapentin 300 MG CAP PO SCH (09:08)
[2023-05-13 12:33] VITALS: TEMP 97.9
[2023-05-13 16:25] VITALS: BP 150/73
== END 2023-05-13 15:47 | disposition home or self-care (01) | DRG 149 ==
LOC: 2SE 19:45 → OBSVTOIN 05-12 16:38
PROVIDERS: ADMIT Internal Medicine; ATTEND Internal Medicine
DX: R42 Dizziness and giddiness (principal); I12.9 Hypertensive chronic kidney disease with stage 1 through stage 4 chronic kidney disease, or unspecified chronic kidney disease; N18.30 Chronic kidney disease, stage 3 unspecified; E66.9 Obesity, unspecified; E11.22 Type 2 diabetes mellitus with diabetic chronic kidney disease; E11.51 Type 2 diabetes mellitus with diabetic peripheral angiopathy without gangrene; I25.10 Atherosclerotic heart disease of native coronary artery without angina pectoris; M10.9 Gout, unspecified; E78.5 Hyperlipidemia, unspecified; H93.19 Tinnitus, unspecified ear; R91.1 Solitary pulmonary nodule; Z96.642 Presence of left artificial hip joint; Z96.653 Presence of artificial knee joint, bilateral; Z88.8 Allergy status to other drugs, medicaments and biological substances; Z88.6 Allergy status to analgesic agent; Z79.82 Long term (current) use of aspirin; Z79.899 Other long term (current) drug therapy; Z79.84 Long term (current) use of oral hypoglycemic drugs; Z95.5 Presence of coronary angioplasty implant and graft; Z68.32 Body mass index [BMI] 32.0-32.9, adult; Z90.49 Acquired absence of other specified parts of digestive tract; Z98.890 Other specified postprocedural states; Z82.49 Family history of ischemic heart disease and other diseases of the circulatory system; Z87.891 Personal history of nicotine dependence
CPT/HCPCS: 36415; 36416; 70496; 70498; 70551; 80048; 80061; 83036; 85025; 93306; 93880; G0378; Q9967

== ENCOUNTER 2023-05-14 01:23 | Emergency (ER) | payer MEDICARE, BC ==
[2023-05-14] MEDS ORDERED: Ketorolac Tromethamine 30 MG/ML VIAL ONE (04:09)
[2023-05-14] MEDS ORDERED: fentaNYL 50 mcg/mL 1 mL Vial ONE ×3 (04:54→10:49)
[2023-05-14 08:43] LABS: ALT (SGPT) 11 U/L (8-55); AST (SGOT) 28 U/L (5-34); Albumin 3.8 g/dL (3.4-4.8); Alkaline Phosphatase 56 U/L (40-110); Anion Gap 17 mmol/L (10-20); BUN (Urea Nitrogen) 14 mg/dL (9.8-20.1); Bilirubin, Total 0.4 mg/dL (0.2-1.2); Calc. Creatinine Clearance 0 mL/min (70-130); Calcium 9.2 mg/dL (7.8-10.44); Carbon Dioxide 26 mmol/L (23-31); Chloride 104 mmol/L (98-107); Estimated GFR 54; Globulin 2.6 g/dL (2.4-3.5); Glucose 148 mg/dL (83-110); Potassium 4.5 mmol/L (3.5-5.1); Protein, Total 6.4 g/dL (5.8-8.1); Sodium 142 mmol/L (136-145)
[2023-05-14 08:44] LABS: Troponin I Less than 0.010 ng/mL (< 0.028)
[2023-05-14 08:45] LABS: %Neutrophils 61.9 % (42.0-75.0); Hemoglobin 14.1 g/dL (12.0-16.0); Mean Corpuscular HGB CONC 32.9 g/dL (32.0-36.0); Mean Corpuscular Hemoglobin 30.7 pg (27.0-31.0); Mean Platelet Volume 9.9 fL (7.4-10.4); Platelet Count 216 10x3/uL (130-400); RBC Distribution Width 13.6 % (11.5-14.5); White Blood Cell (WBC) Count 7.4 10x3/uL (4.8-10.8)
[2023-05-14 08:46] LABS: #Eosinphils 0.2 thou/uL (0.0-0.7); #Monocytes 0.6 thou/uL (0.11-0.59); #Neutrophils 4.6 thou/uL (1.40-6.50); %Basophils 0.4 % (0.0-1.0); %Eosinophils 2.8 % (0.0-10.0); %Lymphocytes 27.2 % (21.0-51.0); %Monocytes 7.4 % (0.0-10.0); Delete Auto Diff?? NO; INR-International Normal Ratio 0.9; Prothrombin Time 12.5 sec (12.0-14.7)
[2023-05-14 08:47] LABS: PTT 30.5 sec (22.9-36.1)
== END 2023-05-14 12:56 | disposition short-term general hospital (02) ==
LOC: ERS 01:23
DX: T84.020A Dislocation of internal right hip prosthesis, initial encounter (principal); E11.9 Type 2 diabetes mellitus without complications; I10 Essential (primary) hypertension; E78.5 Hyperlipidemia, unspecified; Z79.899 Other long term (current) drug therapy; W18.30XA Fall on same level, unspecified, initial encounter
CPT/HCPCS: 71045; 73502; 80053; 84484; 85025; 85610; 85730; J3010; 96374; 96375; 96376; J1885

== ENCOUNTER 2023-06-03 06:09 | Emergency (ER) | payer MEDICARE, BC ==
[2023-06-03 07:13] LABS: #Basophils 0.1 thou/uL (0.0-0.2); #Eosinphils 0.6 thou/uL (0.0-0.7); #Monocytes 0.8 thou/uL (0.11-0.59); #Neutrophils 4.2 thou/uL (1.40-6.50); %Basophils 0.6 % (0.0-1.0); %Eosinophils 7.9 % (0.0-10.0); %Lymphocytes 28.4 % (21.0-51.0); %Monocytes 9.7 % (0.0-10.0); Hematocrit 40.7 % (36.0-47.0); Hemoglobin 12.8 g/dL (12.0-16.0); Mean Corpuscular HGB CONC 31.4 g/dL (32.0-36.0); Mean Corpuscular Hemoglobin 30.4 pg (27.0-31.0); Mean Corpuscular Volume 96.7 fl (78.0-98.0); Mean Platelet Volume 10.1 fL (7.4-10.4); Platelet Count 337 10x3/uL (130-400); RBC Distribution Width 13.5 % (11.5-14.5); Red Blood Cell (RBC) Count 4.21 mill/uL (4.20-5.40); White Blood Cell (WBC) Count 7.9 10x3/uL (4.8-10.8)
[2023-06-03 07:36] LABS: ALT (SGPT) 8 U/L (8-55); AST (SGOT) 32 U/L (5-34); Albumin 4.1 g/dL (3.4-4.8); Alkaline Phosphatase 127 U/L (40-110); Anion Gap 16 mmol/L (10-20); BUN (Urea Nitrogen) 17 mg/dL (9.8-20.1); Bilirubin, Total 0.4 mg/dL (0.2-1.2); Calc. Creatinine Clearance 0 mL/min (70-130); Carbon Dioxide 28 mmol/L (23-31); Chloride 97 mmol/L (98-107); Estimated GFR 35; Globulin 3.2 g/dL (2.4-3.5); Glucose 144 mg/dL (83-110); Potassium 4.9 mmol/L (3.5-5.1); Protein, Total 7.3 g/dL (5.8-8.1); Sodium 136 mmol/L (136-145)
[2023-06-03 07:41] LABS: Troponin I Less than 0.010 ng/mL (< 0.028)
[2023-06-03] MEDS ORDERED: fentaNYL 50 mcg/mL 1 mL Vial ONE (08:40)
[2023-06-03] MEDS ORDERED: Iopamidol-370 76% 500 ML MDV (1 ML CHARGE) ONE (09:33)
[2023-06-03] MEDS ORDERED: Ketorolac Tromethamine 30 MG/ML VIAL ONE (09:35)
[2023-06-03 10:20] LABS: Bacteria/HPF None Seen HPF (None Seen); Bilirubin Negative (Negative); Blood, Urine Trace (Negative); CAUTI Indications for Culture Alt mental st,lethar; Clarity Clear (Clear); Glucose, Urine (Dipstick) Normal (Negative); Ketone, Urine Negative (Negative); Leukocyte 250 Leu/uL (Negative); Nitrite Negative (Negative); Protein, Urine (Dipstick) Negative (Neg-Trace); RBC/HPF 0-3 HPF (0-3); Specific Gravity, Urine 1.012 (1.002-1.036); Urobilinogen Normal mg/dL (Less than 2); pH, Urine 7.5 (5.0-9.0)
[2023-06-03 10:21] LABS: Urine Culture Reflex Yes Yes
[2023-06-03] MEDS ORDERED: HYDROcodone/Acetaminophen 10/325 mg Tablet ONE ×2 (10:26→16:08)
[2023-06-03] MEDS ORDERED: Gabapentin 300 MG CAP PO SCH (14:45)
== END 2023-06-03 17:04 ==
LOC: ERS 06:09
DX: S32.451A Displaced transverse fracture of right acetabulum, initial encounter for closed fracture (principal); I10 Essential (primary) hypertension; E11.9 Type 2 diabetes mellitus without complications; E78.5 Hyperlipidemia, unspecified; Z79.899 Other long term (current) drug therapy; W18.30XA Fall on same level, unspecified, initial encounter
CPT/HCPCS: 71045; 71275; 73502; 74177; 81001; 83880; 84484; 87077; 87086; 87186; 93005; 93971; 96374; 96375; 99285; J3010; 36415; 80053; 84443; 85025; J1885; Q9967

== ENCOUNTER 2023-08-03 01:20 | Emergency (ER) | payer MEDICARE, BC ==
[2023-08-03] MEDS ORDERED: fentaNYL 50 mcg/mL 1 mL Vial ONE ×3 (04:32→08:59)
[2023-08-03 05:02] LABS: #Monocytes 0.6 thou/uL (0.11-0.59); #Neutrophils 5.5 thou/uL (1.40-6.50); %Basophils 0.1 % (0.0-1.0); %Eosinophils 0.2 % (0.0-10.0); %Lymphocytes 26.7 % (21.0-51.0); %Monocytes 6.9 % (0.0-10.0); %Neutrophils 65.7 % (42.0-75.0); Hematocrit 34.9 % (36.0-47.0); Hemoglobin 11.3 g/dL (12.0-16.0); Mean Corpuscular HGB CONC 32.4 g/dL (32.0-36.0); Mean Corpuscular Hemoglobin 30.7 pg (27.0-31.0); Mean Corpuscular Volume 94.8 fl (78.0-98.0); Mean Platelet Volume 10.2 fL (7.4-10.4); Platelet Count 217 10x3/uL (130-400); RBC Distribution Width 14.5 % (11.5-14.5); Red Blood Cell (RBC) Count 3.68 mill/uL (4.20-5.40); White Blood Cell (WBC) Count 8.4 10x3/uL (4.8-10.8)
[2023-08-03 05:15] LABS: INR-International Normal Ratio 1.1; Prothrombin Time 14.4 sec (12.0-14.7)
[2023-08-03 05:30] LABS: ALT (SGPT) 9 U/L (8-55); AST (SGOT) 18 U/L (5-34); Alkaline Phosphatase 64 U/L (40-110); Anion Gap 14 mmol/L (10-20); BUN (Urea Nitrogen) 16 mg/dL (9.8-20.1); Bilirubin, Total 0.3 mg/dL (0.2-1.2); Calc. Creatinine Clearance 0 mL/min (70-130); Calcium 9.1 mg/dL (7.8-10.44); Carbon Dioxide 25 mmol/L (23-31); Chloride 106 mmol/L (98-107); Estimated GFR 69; Globulin 1.9 g/dL (2.4-3.5); Glucose 132 mg/dL (83-110); Potassium 3.8 mmol/L (3.5-5.1); Protein, Total 5.9 g/dL (5.8-8.1); Sodium 141 mmol/L (136-145)
== END 2023-08-03 09:20 | disposition home or self-care (01) ==
LOC: ERS 01:20
DX: S73.004A Unspecified dislocation of right hip, initial encounter (principal); I10 Essential (primary) hypertension; E11.9 Type 2 diabetes mellitus without complications; E78.5 Hyperlipidemia, unspecified; W06.XXXA Fall from bed, initial encounter
CPT/HCPCS: 73501; 80053; 85025; 85610; J3010; 36415; 96374; 96376

== ENCOUNTER 2023-11-06 10:27 | Outpatient (CLI) | payer MEDICARE, BC | END 2023-11-06 10:28 | disposition home or self-care (01) | LOC: BICMAMMO 10:27 | PROVIDERS: ATTEND Family Medicine | DX: Z12.31 Encounter for screening mammogram for malignant neoplasm of breast (principal); Z80.3 Family history of malignant neoplasm of breast | CPT/HCPCS: 77063; 77067 ==

== ENCOUNTER 2024-07-27 07:55 | Outpatient (CLI) | payer MEDICARE, BC ==
[2024-07-27] MEDS ORDERED: Iopamidol 370 76% 100 ML VIAL ONE (10:35)
== END 2024-07-27 07:56 | disposition home or self-care (01) ==
LOC: BICCT 07:55
PROVIDERS: ATTEND Urology
DX: N28.1 Cyst of kidney, acquired (principal); N20.0 Calculus of kidney
CPT/HCPCS: 74178; 82565; Q9967

== ENCOUNTER 2024-08-15 13:15 | Emergency (ER) | payer MEDICARE, BC ==
[2024-08-15] MEDS ORDERED: Acetaminophen 500 MG TAB ONE (13:47)
== END 2024-08-15 15:30 | disposition home or self-care (01) ==
LOC: ERS 13:15
DX: M25.551 Pain in right hip (principal); E11.9 Type 2 diabetes mellitus without complications; I10 Essential (primary) hypertension; Z55.6 Problems related to health literacy; Z96.643 Presence of artificial hip joint, bilateral; W18.30XA Fall on same level, unspecified, initial encounter; Y92.009 Unspecified place in unspecified non-institutional (private) residence as the place of occurrence of the external cause
CPT/HCPCS: 72170; 99283